=== PATIENT | female | born 1995 | race Caucasian/White ===

== ENCOUNTER 2016-03-20 16:24 | Emergency (ER) | payer BC ==
[2016-03-20 16:30] VITALS: BP 119/80; PULSE 110; RESP 15; TEMP 98.4; O2SAT 95
--- NOTE | 2016-03-20 17:10 | EDPHY ---
H & P Stated Complaint: used heroin, last use 6 years airplane [employer], wants detox Time Seen by Provider: 03/20/16 16:30 HPI/ROS: CHIEF COMPLAINT: Requesting assistance with narcotic dependence HISTORY OF PRESENT ILLNESS: The patient presents to the ED requesting assistance with narcotic dependence. The patient reportedly last used heroin approximately 6 hours ago. The patient has been recently been in in an inpatient unit in [place]. The patient is now in [place]. She does not have a local primary care provider. She denies additional medical complaints. The patient denies suicidal or homicidal ideation. REVIEW OF SYSTEMS: A comprehensive 10 point review of systems is otherwise negative aside from elements mentioned in the history of present illness. Source: Patient Exam Limitations: No limitations - Personal History LMP (Females 10-55): Over 28 Days Ago Current Tetanus/Diphtheria Vaccine: Unsure Current Tetanus Diphtheria and Acellular Pertussis (TDAP): Unsure - Medical/Surgical History Hx Asthma: No Hx Chronic Respiratory Disease: No Hx Diabetes: No Hx Cardiac Disease: No Hx Renal Disease: No Hx Cirrhosis: No Hx Alcoholism: No Hx HIV/AIDS: No Hx Splenectomy or Spleen Trauma: No Other PMH: ADRENAL HYPERPLASIA/OFF MEDS FOR 1 YEAR, R elbow surgery, scholiosis - Social History Smoking Status: Current every day smoker Constitutional: Initial Vital Signs Temperature (C) 36.9 C 03/20/16 16:28 Heart Rate 110 H 03/20/16 16:28 Respiratory Rate 15 03/20/16 16:28 Blood Pressure 119/80 03/20/16 16:28 O2 Sat (%) 95 03/20/16 16:28 O2 Delivery Mode Room Air Allergies/Adverse Reactions: No Known Allergies Allergy (Verified 03/20/16 16:27) Home Medications: Medication Instructions Recorded Florinef 03/20/16 Prednisone 03/20/16 Medical Decision Making ED Course/Re-evaluation: The patient does not meet criteria for 72 hour mental health hold. The patient was [facility]. The patient was going to be seen by our case advocate who plan to provide the patient with additional outpatient resources however the patient left the department prior to a visit with the case advocate. The patient had no evidence of respiratory depression or clinical evidence that she was under the influence of narcotics. Additionally, she had no evidence of a significant withdrawal syndrome. Departure - Departure Disposition: Home, Routine, Self-Care Clinical Impression: Narcotic dependence Condition: Good Instructions: Narcotic Abuse (ED) Additional Instructions: 1. Please go directly to the [facility] as they can discuss the outpatient resources to assist with your narcotic dependence. Referrals: [facility] [Outside] - As per Instructions
== END 2016-03-20 17:40 | disposition home or self-care (01) ==
DX: F11.20 Opioid dependence, uncomplicated (principal); F17.200 Nicotine dependence, unspecified, uncomplicated

== ENCOUNTER 2016-05-18 16:23 | Emergency (ER) | payer BC ==
[2016-05-18 16:39] VITALS: BP 155/95; PULSE 99; RESP 18; TEMP 98; O2SAT 97
--- NOTE | 2016-05-18 17:24 | UCPHY ---
H & P Time Seen by Provider: 05/18/16 17:06 Patient Type: Established HPI/ROS: This patient injured her right shoulder while lifting weights the gym this morning. She explains that she was using a reversal machine while lying on her back on the bench pulling her arms for from an overhead position she felt as if her shoulder went out of socket for moment and went back in with immediate pain. She felt this was a pop type of sensation. She now complains of pain to the lateral/apex region of the right shoulder that worsens with AB duction. She states the pain is moderate. She had ibuprofen prior to arrival with partial improvement. No other exacerbating or alleviating factors are noted. ROS: No significant numbness or tingling to the affected arm. No discoloration is noted. No deformity. 5 point ROS is otherwise negative. Smoking Status: Current every day smoker Physical Exam: Physical Exam Vital signs are normal. General: No acute distress Eyes: Pupils equal and react to light. Extraocular motions are intact. Lungs: No respiratory distress. Cardiac: Brisk capillary refill is intact throughout. Pulses are 2+ and symmetric in the affected extremity. Skin: No rash or pallor. Extremities: Atraumatic normal except for right shoulder Right shoulder: Patient has tenderness at the apex of the shoulder and reports difficulty abduct in above horizontal. She is able to externally rotate without difficulty she also tolerates flexion well. There is no deformity appreciated. No ecchymosis. No swelling the AC joint. Neuro: Alert and oriented x3 with no sensorimotor deficits. Initial differential diagnosis: Rotator cuff injury, muscle strain, doubt fracture Constitutional: Initial Vital Signs Temperature (C) 36.6 C 05/18/16 16:37 Heart Rate 99 05/18/16 16:37 Respiratory Rate 18 05/18/16 16:37 Blood Pressure 155/95 H 05/18/16 16:37 O2 Sat (%) 97 05/18/16 16:37 O2 Delivery Mode Room Air Allergies/Adverse Reactions: No Known Allergies Allergy (Verified 03/20/16 16:27) Home Medications: Medication Instructions Recorded Florinef 03/20/16 Prednisone 03/20/16 MDM/Departure - MDM Diagnostics: Shoulder x-ray: Normal by my interpretation ED Course/Re-evaluation: I counseled patient regarding rotator cuff injury. We placed her in a sling. She will follow up with Orthopedics. - Depart Disposition: Home, Routine, Self-Care Clinical Impression: Injury of right rotator cuff Qualifiers: Encounter type: initial encounter Qualified Code(s): S46.001A - Unspecified injury of muscle(s) and tendon(s) of the rotator cuff of right shoulder, initial encounter Condition: Good Instructions: Rotator Cuff Injury (ED) Additional Instructions: Diagnosis: Right shoulder rotator cuff injury Plan: Ice 20 minutes at a time 3 times a day until symptoms improve Continue ibuprofen-600 mg per 6 hours and Tylenol in addition if needed for pain Sling when your up and about until symptoms improve. Gentle [id number] each day to prevent stiff shoulder. Follow up with Dr. silvina montanez-orthopedic surgeon for further evaluation if her symptoms are not improving over the next week with rest. Referrals: NONE *PRIMARY CARE P,. [Primary Care Provider] - As per Instructions Joe Manzano MD [Medical Doctor] - As per Instructions - PQRS PQRS Measurement: NA
== END 2016-05-18 17:30 | disposition home or self-care (01) ==
LOC: CED 16:23
DX: S46.001A Unspecified injury of muscle(s) and tendon(s) of the rotator cuff of right shoulder, initial encounter (principal); X50.0XXA Overexertion from strenuous movement or load, initial encounter; Y92.39 Other specified sports and athletic area as the place of occurrence of the external cause; Y93.B1 Activity, exercise machines primarily for muscle strengthening; Y99.8 Other external cause status; F17.200 Nicotine dependence, unspecified, uncomplicated
CPT/HCPCS: 73030-PO; 99214-PO; G0463-PO

== ENCOUNTER 2017-05-17 15:30 | Emergency (ER) | payer BC ==
--- NOTE | 2017-05-17 15:33 | EDPHY ---
H & P Time Seen by Provider: 05/17/17 15:32 HPI/ROS: CHIEF COMPLAINT: Fever, cough, congestion HISTORY OF PRESENT ILLNESS: The patient presents the ED with a 5 day history of fever cough and congestion. The patient denies abdominal pain, vomiting or diarrhea. The patient is a smoker. The patient did not get a flu shot this year. The patient does report associated myalgias. The patient denies any recent travel outside the [place] or antibiotic use. The patient does have a history of adrenal insufficiency intake steroids for this condition. REVIEW OF SYSTEMS: A comprehensive 10 point review of systems is otherwise negative aside from elements mentioned in the history of present illness. Source: Patient Exam Limitations: No limitations - Medical/Surgical History Hx Asthma: No Hx Chronic Respiratory Disease: No Hx Diabetes: No Hx Cardiac Disease: No Hx Renal Disease: No Hx Cirrhosis: No Hx Alcoholism: No Hx HIV/AIDS: No Hx Splenectomy or Spleen Trauma: No Other PMH: ADRENAL HYPERPLASIA/OFF MEDS FOR 1 YEAR, R elbow surgery, scoliosis - Social History Smoking Status: Current every day smoker - Physical Exam Exam: General Appearance: Alert, no distress Eyes: Pupils equal and round no pallor or injection ENT, Mouth: Mucous membranes moist Respiratory: Rhonchorous breath sounds at the right lung base Cardiovascular: Regular rate and rhythm Gastrointestinal: Abdomen is soft and nontender, no masses, bowel sounds normal Neurological: 5/5 strength all 4 extremities Skin: Warm and dry, no rashes Musculoskeletal: Neck is supple nontender Extremities: symmetrical, full range of motion Constitutional: Initial Vital Signs Heart Rate 90 05/17/17 15:34 Respiratory Rate 18 05/17/17 15:34 O2 Sat (%) 96 05/17/17 15:34 O2 Delivery Mode Room Air O2 (L/minute) 37.0 Allergies/Adverse Reactions: No Known Allergies Allergy (Verified 03/20/16 16:27) Home Medications: Medication Instructions Recorded Florinef 03/20/16 Albuterol [Ventolin Hfa Inhaler] 2 puffs IH QID PRN #1 mdi 05/17/17 Hydrocortisone 05/17/17 Solu-Cortef 100 mg/2 ml (*) 05/17/17 Medical Decision Making - Diagnostics Imaging Results: Chest x-ray PA/lateral: Images reviewed by myself, negative for cardiomegaly, congestive heart failure or infiltrate. ED Course/Re-evaluation: The patient presents to the ED with symptoms consistent with an influenza like infection for the past 5 days. The patient is in no acute distress and is hemodynamically stable. Blood pressure is 106/60. Heart rate is in the 80s. Oxygen saturation is 94%. The patient is afebrile. There is no clinical evidence of meningitis. Chest x-ray demonstrates no evidence of an obvious infiltrate by my interpretation. Tamiflu is not indicated. The patient will be given a prescription for azithromycin. The patient is given customary aftercare instructions and return precautions. Differential Diagnosis: Differential diagnosis considered includes asthma, bronchitis, pneumonia, influenza Departure - Departure Disposition: Home, Routine, Self-Care Clinical Impression: Influenza Condition: Good Instructions: Influenza (ED) Additional Instructions: 1. Tylenol and ibuprofen as needed for pain and fever. 2. Please use albuterol inhaler as needed for cough and shortness of breath. 3. Please return to the ED for markedly worsening symptoms or other concerns. 4. Please follow-up with your primary care provider as needed. Referrals: NONE *PRIMARY CARE P,. [Primary Care Provider] - As per Instructions Prescriptions: Albuterol [Ventolin Hfa Inhaler] 2 puffs IH QID PRN #1 mdi PRN Reason: for shortness of breath
[2017-05-17 15:38] VITALS: RESP 18
[2017-05-17 17:12] VITALS: BP 98/63; PULSE 85; TEMP 97.9; O2SAT 96
== END 2017-05-17 17:45 | disposition home or self-care (01) ==
LOC: EDUNIT#
DX: J11.1 Influenza due to unidentified influenza virus with other respiratory manifestations (principal); F17.200 Nicotine dependence, unspecified, uncomplicated